=== PATIENT | male | born 1995 | race African-American/Black ===

== ENCOUNTER 2018-01-15 00:41 | Emergency (ER) | payer SELFPAY ==
[2018-01-15 01:00] VITALS: BP 144/76; PULSE 98; TEMP 98.3; BMI 26.3
--- NOTE | 2018-01-15 01:59 | PDOC ---
History of Present Illness - General Chief Complaint: Injury Stated Complaint: R HAND INJURY Time Seen by Provider: 01/15/18 00:56 History Source: Patient Exam Limitations: No Limitations - History of Present Illness Initial Comments: 01/15/18 01:55 Best Contact: PCP:0 Pmhx:0 Pshx:0 Allergies:NKDA FH:0 Social Hx: Cigarettes/ 0 Alcohol/ social Drugs/0 LMP:N/A 22-year-old male who is right hand dominant presents to the emergency department complaining of pain and swelling. Patient states he slipped and fell 2 days ago and landed on his right hand. Patient denies extremity numbness or tingling sensation, headache injuries, neck or back pains. Patient denies any other complaints. Timing/Duration: reports: other (x2d ago) Past History - Past Medical History Allergies/Adverse Reactions: Allergies Allergy/AdvReac Type Severity Reaction Status Date / Time SEASONAL ALLERGIES Allergy Uncoded 01/15/18 00:55 Home Medications: Ambulatory Orders Diazepam [Valium] 5 mg PO DAILY PRN #7 tablet MDD 5MG 10/11/15 Ibuprofen [Motrin -] 800 mg PO TID PRN #20 tablet 10/11/15 Asthma: Yes COPD: No - Immunization History Td Vaccination: Yes Immunization Up to Date: Yes - Suicide/Smoking/Psychosocial Hx Smoking Status: No Smoking History: Never smoked Have you smoked in the past 12 months: No Number of Cigarettes Smoked Daily: 0 Information on smoking cessation initiated: No Hx Alcohol Use: No Drug/Substance Use Hx: No Substance Use Type: None Review of Systems - Review of Systems Able to Perform ROS?: Yes Comments:: 01/15/18 01:58 MUSCULOSKELETAL: +right hand pain Absent: myalgia, arthralgia, joint swelling SKIN: Absent: rash, itching, pallor Is the patient limited [place] proficient: No *Physical Exam - Vital Signs Last Vital Signs Temp Pulse Resp BP Pulse Ox 98.3 F 98 H 20 144/76 98 01/15/18 00:59 01/15/18 00:59 01/15/18 00:59 01/15/18 00:59 01/15/18 00:59 - Physical Exam Comments: 01/15/18 01:58 MUSCULOSKELETAL +right hand swelling/pain decreased R.O.M. right wrist" 2+radial pulse F.R.O.M. Normal range of motion at all joints. No bony deformities or tenderness. No CVA tenderness. EXTREMITIES: No cyanosis. No clubbing. No edema. No calf tenderness. SKIN: Warm and dry. Normal capillary refill. No rashes. No jaundice. ED Treatment Course - RADIOLOGY Radiology Studies Ordered: Category Date Time Status HAND- RIGHT [RAD] Stat Radiology 01/15/18 01:53 Ordered Radiograph Interpretation: 01/15/18 01:58 X-ray: Right hand neg Progress Note - Progress Note Progress Note: Right hand xray *DC/Admit/Observation/Transfer Diagnosis at time of Disposition: Contusion, hand Qualifiers: Encounter type: initial encounter Laterality: right Qualified Code(s): S60.221A - Contusion of right hand, initial encounter - Discharge Dispostion Disposition: HOME Condition at time of disposition: Stable Decision to Admit order: No - Referrals Referrals: Erasmo Hyde MD [Staff Physician] - - Patient Instructions Printed Discharge Instructions: DI for Contusion Additional Instructions: Ice; 20 mins on alternating with 20 mins off for 48 hours while awake. Rest Elevate Follow up with your orthopedic surgeon or the one listed on the discharge form. Return to the ER for severe/persistent/worsening symptoms, extremity numbness/ tingling sensation. Yinka wrap - Post Discharge Activity Forms/Work/School Notes: Back to Work
== END 2018-01-15 02:40 | disposition home or self-care (01) ==
LOC: JER 00:41
DX: S60.221A Contusion of right hand, initial encounter (principal); W01.0XXA Fall on same level from slipping, tripping and stumbling without subsequent striking against object, initial encounter; Y93.89 Activity, other specified; Y92.89 Other specified places as the place of occurrence of the external cause; Y99.8 Other external cause status
CPT/HCPCS: 73130-TC-RT-FY; 99283-25